=== PATIENT | female | born 1990 | race Caucasian/White ===

== ENCOUNTER → 2017-01-04 | Outpatient (CLI) | payer OTHER ==
[2017-01-04 19:49] LABS: Appearance,Urine Cloudy (Clear); Bacteria,Urine Few /hpf; Bilirubin,Urine Negative (Negative); Glucose,Urine (UA) Negative (Negative); Ketones,Urine Negative (Negative); Leukocyte Esterase,Urine Large (Negative); Mucus,Urine Rare /hpf; Nitrite,Urine Positive (Negative); Particle Count 15348; Protein,Urine Trace (Negative); RBC,Urine 3 /hpf (0-5); Squamous Epithelial Cell,Urine 6 /hpf (0-4); UA Billing (MACRO vs. MICRO) MICRO; Urobilinogen,Urine <2.0 mg/dL (<2.0); WBC,Urine 74 /hpf (0-5)
== END | disposition home or self-care (01) ==
LOC: LABMAIN 18:29
PROVIDERS: ATTEND Obstetrics & Gynecology
DX: R30.0 Dysuria (principal)
CPT/HCPCS: 81001; 87086

== ENCOUNTER 2017-10-10 16:22 | Emergency (ER) | payer OTHER ==
[2017-10-10 16:45] VITALS: RESP 18
[2017-10-10] MEDS ORDERED: SODIUM CHLORIDE 0.9% 1,000 ML IV ONE (17:16)
[2017-10-10] MEDS ORDERED: ACETAMINOPHEN TAB 325 MG TAB PO STA (17:17)
--- NOTE | 2017-10-10 17:21 | ED ---
Abdominal Pain HPI - General Chief Complaint: Abdominal Pain Stated Complaint: Back pain/ Time Seen by Provider: 10/10/17 17:07 Source: patient Mode of arrival: ambulatory Limitations: no limitations - History of Present Illness Initial Comments: 27 year-old female patient presents to the emergency department today for evaluation of right lower back pain that radiates into her abdomen. Patient states that she is approximately 6 weeks . She is A2, with 2 spontaneous miscarriages. States that yesterday she started to have hot flashes , frequency of urination, some mild dysuria. Today she had onset of the back pain that radiated around her right side into her abdomen. Patient states that she did have spotting a couple of days ago after intercourse, but that has resolved. She denies any current vaginal bleeding or discharge. She denies any hematuria. She denies any nausea or vomiting. Patient denies any recent rash, chills, shortness breath, chest pain, diarrhea, constipation, back pain, numbness, tingling, dizziness, weakness, headache, visual changes, or any other complaints. - Related Data Home Medications Medication Instructions Recorded Confirmed Kkh-Lpwv-Ouxcn Acid 1 tab PO DAILY 06/28/15 10/10/17 [-U Capsule (formulary)] Previous Rx's Medication Instructions Recorded Cephalexin [Keflex] 500 mg PO Q12H #14 cap 10/10/17 Allergies Allergy/AdvReac Type Severity Reaction Status Date / Time No Known Allergies Allergy Verified 10/10/17 16:57 Review of Systems ROS Statement: Those systems with pertinent positive or pertinent negative responses have been documented in the HPI. ROS Other: All systems not noted in ROS Statement are negative. Past Medical History Past Medical History: No Reported History History of Any Multi-Drug Resistant Organisms: None Reported Past Surgical History: No Surgical Hx Reported Past Anesthesia/Blood Transfusion Reactions: No Reported Reaction Past Psychological History: No Psychological Hx Reported Smoking Status: Never smoker Past Alcohol Use History: None Reported Past Drug Use History: None Reported - Past Family History Father Family Medical History: No Reported History General Exam Limitations: no limitations General appearance: alert, in no apparent distress, other (So well-developed, well-nourished adult female patient in no acute distress. Vital signs upon presentation are temperature 100.0F, pulse 86, respirations 18, blood pressure 127/72, pulse ox 98% on room air.) Eye exam: Present: normal appearance, PERRL, EOMI. Absent: scleral icterus, conjunctival injection, periorbital swelling ENT exam: Present: normal exam, normal oropharynx, mucous membranes moist Respiratory exam: Present: normal lung sounds bilaterally. Absent: respiratory distress, wheezes, rales, rhonchi, stridor Cardiovascular Exam: Present: regular rate, normal rhythm, normal heart sounds. Absent: systolic murmur, diastolic murmur, rubs, gallop, clicks GI/Abdominal exam: Present: soft, normal bowel sounds. Absent: distended, tenderness, guarding, rebound, rigid Back exam: Present: normal inspection. Absent: CVA tenderness (R), CVA tenderness (L) Neurological exam: Present: alert, oriented X3, CN II-XII intact Psychiatric exam: Present: normal affect, normal mood Skin exam: Present: warm, dry, intact, normal color. Absent: rash Course Vital Signs 10/10/17 16:44 Temperature 100.0 F H Pulse Rate 86 Respiratory 18 Rate Blood Pressure 127/72 O2 Sat by Pulse 98 Oximetry Medical Decision Making - Medical Decision Making 27 old female patient presented to the emergency department today for evaluation of right flank pain and urinary symptoms. Physical examination was unremarkable. Patient did not have any CVA tenderness. Labs reviewed and did reveal an elevated white blood cell count at 12.5, quantitative hCG was 16,405.4 , urinalysis showed cloudy appearance with 1+ protein, small amount of blood, positive nitrite, large leukocyte esterase, 90 red blood cells, 36 white blood cells, 5 squamous of edema cells, rare bacteria, and rare mucous. Ultrasound of the fetus did show a viable intrauterine measuring 5 weeks with a heart rate of 172. I did discuss findings and results with the patient. Did discuss possibility of a pyelonephritis given her flank pain. We will give HER- 2 grams of Rocephin IV push here in the department. She'll be started on Keflex and discharged home to follow-up with her [facility] as soon as possible. Return parameters discussed in detail. - Lab Data Result diagrams: 10/10/17 17:27 10/10/17 17:27 Lab Results 10/10/17 10/10/17 10/10/17 Range/Units 16:51 17:27 17:27 WBC 12.5 H (3.8-10.6) k/uL RBC 4.70 (3.80-5.40) m/uL Hgb 13.4 (11.4-16.0) gm/dL Hct 39.8 (34.0-46.0) % MCV 84.7 (80.0-100.0) fL MCH 28.6 (25.0-35.0) pg MCHC 33.7 (31.0-37.0) g/dL RDW 12.9 (11.5-15.5) % Plt Count 228 (150-450) k/uL Neutrophils % 83 % Lymphocytes % 12 % Monocytes % 3 % Eosinophils % 2 % Basophils % 0 % Neutrophils # 10.3 H (1.3-7.7) k/uL Lymphocytes # 1.4 (1.0-4.8) k/uL Monocytes # 0.4 (0-1.0) k/uL Eosinophils # 0.2 (0-0.7) k/uL Basophils # 0.0 (0-0.2) k/uL Sodium 138 (137-145) mmol/L Potassium 3.9 (3.5-5.1) mmol/L Chloride 103 (98-107) mmol/L Carbon Dioxide 21 L (22-30) mmol/L Anion Gap 14 mmol/L BUN 8 (7-17) mg/dL Creatinine 0.50 L (0.52-1.04) mg/dL Est GFR (CKD-EPI)AfAm >90 (>60 ml/min/1.73 sqM) Est GFR (CKD-EPI)NonAf >90 (>60 ml/min/1.73 sqM) Glucose 110 H (74-99) mg/dL Calcium 9.7 (8.4-10.2) mg/dL Total Bilirubin 0.4 (0.2-1.3) mg/dL AST 20 (14-36) U/L ALT 28 (9-52) U/L Alkaline Phosphatase 77 (38-126) U/L Total Protein 7.0 (6.3-8.2) g/dL Albumin 4.4 (3.5-5.0) g/dL Amylase 54 (30-110) U/L Lipase 50 (23-300) U/L HCG, Quant 27110.4 mIU/mL Urine Color Yellow Urine Appearance Cloudy H (Clear) Urine pH 6.5 (5.0-8.0) Ur Specific [place] 1.014 (1.001-1.035) Urine Protein 1+ H (Negative) Urine Glucose (UA) Negative (Negative) Urine Ketones Negative (Negative) Urine Blood Small H (Negative) Urine Nitrite Positive H (Negative) Urine Bilirubin Negative (Negative) Urine Urobilinogen <2.0 (<2.0) mg/dL Ur Leukocyte Esterase Large H (Negative) Urine RBC 19 H (0-5) /hpf Urine WBC 36 H (0-5) /hpf Ur Squamous Epith Cells 5 H (0-4) /hpf Urine Bacteria Rare H (None) /hpf Urine Mucus Rare H (None) /hpf Blood Type Blood Type Recheck 10/10/17 Range/Units 17:27 WBC (3.8-10.6) k/uL RBC (3.80-5.40) m/uL Hgb (11.4-16.0) gm/dL Hct (34.0-46.0) % MCV (80.0-100.0) fL MCH (25.0-35.0) pg MCHC (31.0-37.0) g/dL RDW (11.5-15.5) % Plt Count (150-450) k/uL Neutrophils % % Lymphocytes % % Monocytes % % Eosinophils % % Basophils % % Neutrophils # (1.3-7.7) k/uL Lymphocytes # (1.0-4.8) k/uL Monocytes # (0-1.0) k/uL Eosinophils # (0-0.7) k/uL Basophils # (0-0.2) k/uL Sodium (137-145) mmol/L Potassium (3.5-5.1) mmol/L Chloride (98-107) mmol/L Carbon Dioxide (22-30) mmol/L Anion Gap mmol/L BUN (7-17) mg/dL Creatinine (0.52-1.04) mg/dL Est GFR (CKD-EPI)AfAm (>60 ml/min/1.73 sqM) Est GFR (CKD-EPI)NonAf (>60 ml/min/1.73 sqM) Glucose (74-99) mg/dL Calcium (8.4-10.2) mg/dL Total Bilirubin (0.2-1.3) mg/dL AST (14-36) U/L ALT (9-52) U/L Alkaline Phosphatase (38-126) U/L Total Protein (6.3-8.2) g/dL Albumin (3.5-5.0) g/dL Amylase (30-110) U/L Lipase (23-300) U/L HCG, Quant mIU/mL Urine Color Urine Appearance (Clear) Urine pH (5.0-8.0) Ur Specific [place] (1.001-1.035) Urine Protein (Negative) Urine Glucose (UA) (Negative) Urine Ketones (Negative) Urine Blood (Negative) Urine Nitrite (Negative) Urine Bilirubin (Negative) Urine Urobilinogen (<2.0) mg/dL Ur Leukocyte Esterase (Negative) Urine RBC (0-5) /hpf Urine WBC (0-5) /hpf Ur Squamous Epith Cells (0-4) /hpf Urine Bacteria (None) /hpf Urine Mucus (None) /hpf Blood Type O Positive Blood Type Recheck No - Radiology Data Radiology results: report reviewed Transvaginal ultrasound of the fetus was obtained. Report shows viable intrauterine measuring 5 weeks 4 days with a heart rate of 172. Impression by Dr. Owens shows ultrasound gestational age is 5 weeks and 4 days. I see no complicating process. Disposition Clinical Impression: Pyelonephritis Disposition: HOME SELF-CARE Condition: Good Instructions: Urinary Tract Infection in (ED) Additional Instructions: Complete antibiotic in full. Increase fluids. Follow up with OBGYN as soon as possible. Have repeat urine done once antibiotics are complete to ensure clearance of infection. Return here immediately for any new, worsening, or concerning symptoms. Prescriptions: Cephalexin [Keflex] 500 mg PO Q12H #14 cap Is patient prescribed a controlled substance at d/c from ED?: No Referrals: Siddhartha Coates DO [Primary Care Provider] - 1-2 days Time of Disposition: 18:56
[2017-10-10 17:22] LABS: Appearance,Urine Cloudy (Clear); Bacteria,Urine Rare /hpf; Bilirubin,Urine Negative (Negative); Blood,Urine Small (Negative); Color,Urine Yellow; Glucose,Urine (UA) Negative (Negative); Ketones,Urine Negative (Negative); Leukocyte Esterase,Urine Large (Negative); Mucus,Urine Rare /hpf; Nitrite,Urine Positive (Negative); PH, Urine 6.5 (5.0-8.0); Protein,Urine 1+ (Negative); RBC,Urine 19 /hpf (0-5); Specific Gravity,Urine 1.014 (1.001-1.035); Squamous Epithelial Cell,Urine 5 /hpf (0-4); Urobilinogen,Urine <2.0 mg/dL (<2.0); WBC,Urine 36 /hpf (0-5)
[2017-10-10 17:35] LABS: Basophils % (A) 0 %; Eosinophils # (A) 0.2 k/uL (0-0.7); Eosinophils % (A) 2 %; HCT 39.8 % (34.0-46.0); HGB 13.4 gm/dL (11.4-16.0); Lymphocytes # (A) 1.4 k/uL (1.0-4.8); Lymphocytes % (A) 12 %; MCH 28.6 pg (25.0-35.0); MCHC 33.7 g/dL (31.0-37.0); MCV 84.7 fL (80.0-100.0); Mean Platelet Volume 8.6; Monocytes # (A) 0.4 k/uL (0-1.0); Monocytes % (A) 3 %; Neutrophils # (A) 10.3 k/uL (1.3-7.7); Neutrophils % (A) 83 %; Platelet Count 228 k/uL (150-450); RDW 12.9 % (11.5-15.5); WBC 12.5 k/uL (3.8-10.6)
[2017-10-10 17:58] LABS: ALT 28 U/L (9-52); AST 20 U/L (14-36); Albumin 4.4 g/dL (3.5-5.0); Alkaline Phosphatase 77 U/L (38-126); Amylase 54 U/L (30-110); Anion Gap 14 mmol/L; Blood Urea Nitrogen 8 mg/dL (7-17); Calcium 9.7 mg/dL (8.4-10.2); Carbon Dioxide 21 mmol/L (22-30); Chloride 103 mmol/L (98-107); Glucose 110 mg/dL (74-99); Lipase 50 U/L (23-300); Potassium 3.9 mmol/L (3.5-5.1); Sodium 138 mmol/L (137-145); Total Bilirubin 0.4 mg/dL (0.2-1.3)
[2017-10-10] MEDS ORDERED: cefTRIAXone IN SWFI 1,000 MG/10 ML SYRINGE IVP STA ×2 (18:22→18:44)
--- NOTE | 2017-10-10 18:28 | US ---
EXAMINATION TYPE: Transabdominal DATE OF EXAM: 09/18/17 COMPARISON: NONE CLINICAL HISTORY: Pain. RLQ pain EXAM PERFORMED: Transvaginal (TV) and Transabdominal (TA) EXAM MEASUREMENTS: GESTATIONAL AGE / DATING Physician Established: Not yet established Dates by LMP: (5 weeks/3 days) EDC: 06/09/2018 Dates by First Scan: No previous this is first scan Dates by Current Scan for: (5 weeks/4 days) EDC: 06/08/2018 MATERNAL ANATOMY Uterus: 9.8 x 4.7 x 6.0 cm Right Ovary: 2.3 x 1.5 x 2.0 cm Left Ovary: 2.3 x 2.1 x 3.6 cm Post CDS / Adnexa: wnl Presence of free fluid: no Presence of corpus luteal cyst: yes left ovary measuring 3.1 x 3.2 x 2.5 cm Presence of subchorionic bleed: no GESTATION / SURVEY CRL: 0.3 cm (5 weeks/6 days) MSD: 1.1 cm (5 weeks/2 days) Yolk Sac (normal less than 6mm): 2 mm Heart Rate: 172 bpm Rhythm: Normal IUP: Viable IUP Date of LMP: 09/02/2017 Beta HcG (if available): Not available at this time Viable IUP 5 wks 4days DAWN 06/08/2018 HR 172 BPM IMPRESSION: The ultrasound gestational age is 5 weeks and 4 days. I see no complicating process.
[2017-10-10 18:41] LABS: HCG,Quantitative Serum 16405.4 mIU/mL
[2017-10-10 19:02] VITALS: BP 125/63; PULSE 82; TEMP 98.4
== END 2017-10-10 19:13 | disposition home or self-care (01) ==
LOC: EC 16:22
DX: O23.01 Infections of kidney in pregnancy, first trimester (principal); Z3A.01 Less than 8 weeks gestation of pregnancy
CPT/HCPCS: 99284; 96374; 96361; 36415; 86900; 86901; 80053; 82150; 83690; 85025; 81001; 84702; 87086; 76801; 76817; J0696; 87077; 87186

== ENCOUNTER → 2018-01-03 | Outpatient (CLI) | payer OTHER ==
[2018-01-07 11:31] LABS: Alpha Fetoprotein (M.O.M) 1.08; B-HCG (M.O.M.) 0.45; Gestational Age (days) 4; Human Chorionic Gonadotropin 10.3 IU/mL; Inhibin A (M.O.M.) 0.49; Maternal Age at EDD (Yrs) 26; Smoker No; Unconjugated Estriol (M.O.M.) 1.23
== END | disposition home or self-care (01) ==
LOC: LABWHC1 16:31
PROVIDERS: ATTEND Obstetrics & Gynecology
DX: Z34.82 Encounter for supervision of other normal pregnancy, second trimester (principal); Z3A.00 Weeks of gestation of pregnancy not specified
CPT/HCPCS: 36415; 82105; 82677; 84702; 86336

== ENCOUNTER → 2018-03-09 | Outpatient (CLI) | payer OTHER ==
[2018-03-09 11:56] LABS: HCT 36.2 % (34.0-46.0); HGB 12.4 gm/dL (11.4-16.0); MCH 30.8 pg (25.0-35.0); MCHC 34.3 g/dL (31.0-37.0); MCV 89.8 fL (80.0-100.0); Mean Platelet Volume 8.5; Platelet Count 169 k/uL (150-450); RBC 4.03 m/uL (3.80-5.40); RDW 13.7 % (11.5-15.5); WBC 8.4 k/uL (3.8-10.6)
== END | disposition home or self-care (01) ==
LOC: LABWHC1 10:44
PROVIDERS: ATTEND Obstetrics & Gynecology
DX: Z34.82 Encounter for supervision of other normal pregnancy, second trimester (principal); Z3A.00 Weeks of gestation of pregnancy not specified
CPT/HCPCS: 36415; 82950; 85027

== ENCOUNTER 2018-05-28 18:56 | Outpatient (CLI) | payer OTHER ==
[2018-05-28 20:39] VITALS: BP 132/72; PULSE 88; RESP 16; TEMP 97.8
--- NOTE | 2018-05-30 17:53 | P.MSEPDOC ---
Presenting Problems - Arrival Data Date of Arrival on Unit: 05/28/18 Time of Arrival on Unit: 18:57 Mode of Transport: Wheelchair - Complaint OB-Reason for Admission/Chief Complaint: Possible Onset of Labor Comment: contx 5-6 mins apart starting at 0900, vaginal pressure, decreased FM Medical History - Information : 7 Para: 4 Term: 4 : 0 Abortions: Spontaneous or Elective: 2 Number of Living Children: 4 - Gestational Age Gestational Age by DAWN (wks/days): 38 Weeks and 2 Days - History Comment: none Review of Systems - Review of Systems Constitutional: No problems Breast: No problems ENT: No problems Cardiovascular: No problems Respiratory: No problems Gastrointestinal: No problems Genitourinary: No problems Musculoskeletal: No problems Neurological: No problems Skin: No problems Vital Signs - Temperature Temperature: 97.8 F Temperature Source: Temporal Artery Scan - Pulse Right Sitting Brachial Pulse Rate: 88 Pulse Assessment Method: Automatic Cuff - Respirations Respiratory Rate: 16 Oxygen Delivery Method: Room Air O2 Sat by Pulse Oximetry: 100 - Blood Pressure Right Arm Sitting Blood Pressure: 132/72 Blood Pressure Mean: 92 Blood Pressure Source: Automatic Cuff Medical Screen Scoring (Pre) - Cervical Exam Dilation: 1-3 cm = 1 Effacement: More than 50% = 2 Membranes: Intact - Uterine Contractions Frequency: > or = 36 weeks =2 Duration: > 40 seconds = 2 - Maternal Vital Signs Maternal Temperature: N/A Signs of Preeclampsia: N/A - Pain Assessment Pain Location and Character: Lower, Abdomen Pain Scale Used: Numeric (1 - 10) Pain Intensity: 6 Pain Management Goal: 3 Pain Description: *Acute, Cramping Pain Radiation Location: lower back Pain Frequency: Frequent Pain Duration: 10 Pain Duration Units: Hours Pain Behavior: Facial Grimacing, Vocalization Pain Aggravating Factors: Activity - Maternal Trauma Maternal Trauma: N/A - Assessment Baseline FHR: 135 Heart Rate - NICHD Category: Category I (Normal) = 0 Station: N/A - Total Score Total Score (Pre): 7 - Level of Risk Level of Risk: Medium (6-9) Physician Notification (Pre) - Physician Notified Physician Notified Date: 05/28/18 Physician Notified Time: 19:17 Physician/Practitioner Notifed:: valerio Spoke With: valerio New Order Received: Yes - Notification Comment Comment: recheck after 1 hour, if no cervical change, d/c home Medical Screen Scoring (Post) - Cervical Exam Dilation: 1-3 cm = 1 Effacement: More than 50% = 2 Membranes: Intact - Uterine Contractions Frequency: > or = 36 weeks =2 Duration: > 40 seconds = 2 - Maternal Vital Signs Maternal Temperature: N/A Maternal Blood Pressure: N/A Signs of Preeclampsia: N/A Maternal Respirations: N/A - Assessment Heart Rate: 130 Heart Rate - NICHD Category: Category I (Normal) = 0 NST: Reactive Position: N/A Station: N/A - Total Score Total Score (Post): 7 - Post Treatment Level of Risk Post Treatment Level of Risk: Medium (6-9) Physician Notification (Post) - Physician Notified Physician Notified Date: 05/28/18 Physician Notified Time: 19:17 Physician/Practitioner Notified:: valerio Spoke With: valerio New Order Received: Yes - Notification Comment Comment: d/c home, pt to f/u in office tomorrow at her scheduled appt. Disposition - Disposition OB Disposition: Discharge to home Discharge Date: 05/28/18 Discharge Time: 20:12 I agree with the RN Medical Screening Exam: Yes Risk & Benefit of care provided described in d/c instruction: Yes Diagnosis: FALSE LABOR AT OR AFTER 37 COMPLETED WEEKS OF GESTATION
== END 2018-05-28 20:12 | disposition home or self-care (01) ==
LOC: FBPOP 18:56
PROVIDERS: ATTEND Obstetrics & Gynecology
DX: O47.1 False labor at or after 37 completed weeks of gestation (principal); Z3A.38 38 weeks gestation of pregnancy
CPT/HCPCS: 59025; G0463; 99213

== ENCOUNTER → 2018-05-29 | Outpatient (CLI) | payer OTHER ==
--- NOTE | 2018-05-29 14:05 | US ---
EXAMINATION TYPE: US OB limited DATE OF EXAM: 05/29/2018 COMPARISON: NONE CLINICAL HISTORY: check fluid level . Assess kun for possible PROM EXAM PERFORMED: OB limited GESTATIONAL AGE / DATING Physician Established: (38 weeks/3 days) EDC: 06/09/2018 No growth performed on today?s study per ordering physician SURVEY KUN: 11.8 cm Normal Ultrasound evidence of premature rupture of membranes? NO PRESENTATION: Vertex HEART RATE: 166 bpm RHYTHM: Normal Impression page given to GRAYSON Packer small parts are not evaluated on this exam IMPRESSION: 1. No intrauterine gestation with cardiac activity 166 bpm. 2. KUN 11.8 cm.
--- NOTE | 2018-05-30 11:59 | P.MSEPDOC ---
Presenting Problems - Arrival Data Date of Arrival on Unit: 05/29/18 Time of Arrival on Unit: 13:10 Mode of Transport: Ambulatory - Complaint Comment: Dr. Ozuna sent pt over from office for NST and ultrasound for KUN level for decreased movement Medical History - Information : 7 Para: 4 Term: 4 : 0 Abortions: Spontaneous or Elective: 2 Number of Living Children: 4 Physician Notification (Pre) - Physician Notified Physician Notified Date: 05/29/18 Physician Notified Time: 14:10 Physician/Practitioner Notifed:: Dr. Ozuna Spoke With: Dr. Ozuna New Order Received: Yes - Notification Comment Comment: Dr. Ozuna notified of reactive NST, positive movement felt since arrival to triage, cervical exam same as in the office, KUN of 11.8, orders to discharge pt home, pt may come back on Sunday and Sunday for NST, pt is scheduled for IOL on SundayJun 05 Disposition - Disposition OB Disposition: Triage, Discharge to home, Written follow up instructions reviewed Discharge Date: 05/29/18 Discharge Time: 14:20 I agree with the RN Medical Screening Exam: Yes Risk & Benefit of care provided described in d/c instruction: Yes Diagnosis: DECREASED MOVEMENTS, THIRD TRIMESTER, UNSP
== END | disposition home or self-care (01) ==
LOC: FBPOP 13:10
PROVIDERS: ATTEND Obstetrics & Gynecology
DX: O36.8130 Decreased fetal movements, third trimester, not applicable or unspecified (principal); Z3A.00 Weeks of gestation of pregnancy not specified
CPT/HCPCS: 59025; 76815

== ENCOUNTER 2018-05-31 17:43 | Outpatient (CLI) | payer OTHER ==
[2018-05-31 18:18] VITALS: BP 121/71; PULSE 82; RESP 16; TEMP 98.8
--- NOTE | 2018-06-01 07:21 | P.MSEPDOC ---
Presenting Problems - Arrival Data Date of Arrival on Unit: 05/31/18 Time of Arrival on Unit: 17:53 Mode of Transport: Ambulatory - Complaint OB-Reason for Admission/Chief Complaint: NST Comment: pt here for a NST was here on SUNDAY for decreased movement and was told to come back Sunday and Sunday for a NST. Pt to be induced o Tuesday 06/[address] Ozuna Medical History - Information : 7 Para: 4 Term: 4 : 0 Abortions: Spontaneous or Elective: 2 Number of Living Children: 4 - Gestational Age Gestational Age by DAWN (wks/days): 38 Weeks and 2 Days Review of Systems - Review of Systems Constitutional: No problems Breast: No problems ENT: No problems Cardiovascular: No problems Respiratory: No problems Gastrointestinal: No problems Genitourinary: No problems Musculoskeletal: No problems Neurological: No problems Skin: No problems Vital Signs - Temperature Temperature: 98.8 F Temperature Source: Oral - Pulse Right Brachial Pulse Rate: 82 Pulse Assessment Method: Automatic Cuff - Respirations Respiratory Rate: 16 Oxygen Delivery Method: Room Air O2 Sat by Pulse Oximetry: 98 - Blood Pressure Right Arm Blood Pressure: 121/71 Blood Pressure Mean: 87 Blood Pressure Source: Automatic Cuff Medical Screen Scoring (Pre) - Cervical Exam Dilation: Exam Deferred Effacement: Exam Deferred Membranes: Intact - Uterine Contractions Frequency: > 5 minutes apart = 1 Duration: N/A Intensity: N/A - Maternal Vital Signs Maternal Temperature: N/A Maternal Blood Pressure: N/A Signs of Preeclampsia: N/A - Pain Assessment Pain Scale Used: Numeric (1 - 10) Pain Intensity: 0 Pain Management Goal: 0 Pain Behavior: Vocalization - Maternal Trauma Maternal Trauma: N/A - Assessment Baseline FHR: 130 Heart Rate - NICHD Category: Category I (Normal) = 0 NST: Reactive Position: N/A Station: N/A - Total Score Total Score (Pre): 1 Physician Notification (Post) - Physician Notified Physician Notified Date: 05/31/18 Physician Notified Time: 18:10 Spoke With: dr luo New Order Received: Yes - Notification Comment Comment: after reactive NST may discharge to home with instructions Disposition - Disposition OB Disposition: Discharge to home Discharge Date: 05/31/18 Discharge Time: 18:50 I agree with the RN Medical Screening Exam: Yes Risk & Benefit of care provided described in d/c instruction: Yes Diagnosis: DECREASED MOVEMENTS, THIRD TRIMESTER, FETUS 1 (Patient presents to labor and delivery for a scheduled nonstress test per Dr. Ozuna. Apparently the patient has had some decreased movement earlier this week and was instructed to come here on Sunday for repeat nonstress test. Nonstress test is reactive and patient is having good movement. She'll be discharged home to follow-up as directed by Dr. Ozuna.)
== END 2018-05-31 18:50 | disposition home or self-care (01) ==
LOC: FBPOP 17:43
PROVIDERS: ATTEND Obstetrics & Gynecology
DX: O36.8131 Decreased fetal movements, third trimester, fetus 1 (principal); Z3A.38 38 weeks gestation of pregnancy
CPT/HCPCS: 59025; G0463; 99213

== ENCOUNTER 2018-06-03 05:46 | Inpatient (IN) | payer OTHER ==
[2018-06-03] MEDS ORDERED: TERBUTALINE 1 MG/ML VIAL SQ PRN (05:58)
[2018-06-03] MEDS ORDERED: OXYTOCIN 10 UNIT/ML 1 ML VIAL IM PRN (05:58)
[2018-06-03] MEDS ORDERED: CARBOPROST TROMETHAMINE 250 MCG/ML 1 ML AMP IM PRN (05:58)
[2018-06-03] MEDS ORDERED: LIDOCAINE 0.5% (PF) 5 MG/ML (50 ML SDV) SQ PRN (05:58)
[2018-06-03] MEDS ORDERED: METHYLERGONOVINE 0.2 MG/ML 1 ML AMP IM PRN (05:58)
[2018-06-03] MEDS ORDERED: OXYTOCIN 20 UNITS/1000 ML NS 1,000 ML IV SCH ×2 (06:00→09:24)
[2018-06-03] MEDS ORDERED: LACTATED RINGERS 1,000 ML IV SCH (06:00)
[2018-06-03 06:07] VITALS: BMI 32.5
[2018-06-03 06:16] LABS: Basophils % (A) 0 %; Eosinophils # (A) 0.2 k/uL (0-0.7); Eosinophils % (A) 2 %; HCT 35.5 % (34.0-46.0); HGB 11.7 gm/dL (11.4-16.0); Lymphocytes # (A) 1.6 k/uL (1.0-4.8); Lymphocytes % (A) 23 %; MCHC 33.1 g/dL (31.0-37.0); MCV 90.6 fL (80.0-100.0); Mean Platelet Volume 9.5; Monocytes # (A) 0.5 k/uL (0-1.0); Monocytes % (A) 7 %; Neutrophils # (A) 4.3 k/uL (1.3-7.7); Neutrophils % (A) 65 %; Platelet Count 140 k/uL (150-450); RBC 3.92 m/uL (3.80-5.40); RDW 13.8 % (11.5-15.5); WBC 6.7 k/uL (3.8-10.6)
--- NOTE | 2018-06-03 08:52 | P.HPOB ---
History of Present Illness H&P Date: 06/03/18 Chief Complaint: Spontaneous rupture of membranes This is a 27 [place] female 7 para 4 with an estimated date of confinement of 06/09/2018, estimated gestational age of 39 and one sevenths weeks, who presents to labor and delivery with complaints of spontaneous rupture of membranes at approximately 5 AM this morning with clear fluid noted. She began feeling contractions shortly after rupture. Her care has been uncomplicated. labs: GC/chlamydia-negative Hepatitis B surface antigen-negative RPR-nonreactive Rubella-immune Blood type-O+ Antibody screen-negative Hemoglobin-13.8 Toxoplasma-negative Random glucose-81 Obstetrical ultrasound-normal anatomy Group B streptococcus-negative One hour Glucola-117 Obstetrical history: . History of 4 vaginal deliveries at term. History of 2 miscarriages. Gynecologic history: History of chlamydia treated in 2013. Social history: She is single. She is unemployed. Review of Systems Constitutional: Denies chills, Denies fever Eyes: denies blurred vision, denies pain Ears, nose, mouth and throat: Denies headache, Denies sore throat Cardiovascular: Denies chest pain, Denies shortness of breath Respiratory: Denies cough Gastrointestinal: Reports abdominal pain (Contractions) Genitourinary: Reports pelvic pain, Reports Musculoskeletal: Reports low back pain Integumentary: Denies pruritus, Denies rash Neurological: Denies numbness, Denies weakness Psychiatric: Reports anxiety, Denies depression Past Medical History Past Medical History: No Reported History History of Any Multi-Drug Resistant Organisms: None Reported Past Surgical History: No Surgical Hx Reported Past Anesthesia/Blood Transfusion Reactions: No Reported Reaction Past Psychological History: No Psychological Hx Reported Smoking Status: Never smoker Past Alcohol Use History: None Reported Past Drug Use History: None Reported - Past Family History Father Family Medical History: No Reported History Medications and Allergies Home Medications Medication Instructions Recorded Confirmed Type Wuq-Kmza-Qrjjj Acid 1 tab PO DAILY 06/28/15 06/03/18 History [-U Capsule (formulary)] Allergies Allergy/AdvReac Type Severity Reaction Status Date / Time No Known Allergies Allergy Verified 06/03/18 05:55 Exam Osteopathic Statement: *. No significant issues noted on an osteopathic structural exam other than those noted in the History and Physical/Consult. Vital Signs Temp Pulse Resp BP 06/03/18 06:15 98.2 F 86 18 127/61 06/03/18 06:01 98.2 F 86 18 127/61 Intake and Output 06/02/18 06/03/18 06/03/18 22:59 06:59 14:59 Other: # Voids 1 Weight 86.183 kg HEENT: Within normal limits Heart: Regular rate and rhythm Lungs: Clear to auscultation bilaterally Abdomen: Cervix: Initially on admission was 4 cm. Upon my check she was 6 cm/90%/-2 station with no palpable bag. heart tones: Reactive Contractions: Every 2-5 minutes Extremities: Negative Homans Results Result Diagrams: 06/03/18 06:10 Abnormal Lab Results - Last 24 Hours (Table) 06/03/18 Range/Units 06:10 Plt Count 140 L (150-450) k/uL Assessment and Plan (1) 39 weeks gestation of Current Visit: Yes Status: Acute Code(s): Z3A.39 - 39 WEEKS GESTATION OF SNOMED Code(s): 20600036 Plan: Admission for active labor. Expectant management.
--- NOTE | 2018-06-03 09:06 | P.PROBDLV ---
Vaginal Delivery Note - . Vaginal Delivery Note: The patient progressed to complete dilation. She did not receive any pain medication per her request. Once reaching complete, she began pushing. She pushed approximate 3 pushes and 's head came to a crown and then delivered across the perineum followed by the anterior shoulder. Nuchal cord times one was reduced around the body with delivery. And was placed on mother's abdomen. Nose and mouth were bulb suctioned. Cord was clamped and cut and was taken to warmer for evaluation. A true knot was also noted in the cord. Placenta delivered shortly thereafter, intact, with a three- vessel cord. Uterus contracted well after oxytocin was given and uterine massage was carried out. Inspection of the perineum revealed no perineal lacerations. A viable male infant was noted with scores of 7 at 1 minute and 9 at 5 minutes. weight is pending at this time. Estimated blood loss is approximately 150 mL's. Both mother and infant are in stable condition.
[2018-06-03] MEDS ORDERED: LANOLIN CREAM 5 GM TUBE TOPICAL PRN (09:24)
[2018-06-03] MEDS ORDERED: diphenhydrAMINE 25 MG CAP PO PRN (09:24)
[2018-06-03] MEDS ORDERED: BENZOCAINE/MENTHOL SPRAY 1 GM/SPRAY AEROSOL TOPICAL PRN (09:24)
[2018-06-03] MEDS ORDERED: HYDROCORTISONE 2.5% RECTAL CREAM 30 GM TUBE RECTAL PRN (09:24)
[2018-06-03] MEDS ORDERED: SIMETHICONE 80 MG CHEWABLE PO PRN (09:24)
[2018-06-03] MEDS ORDERED: WITCH HAZEL 1 EACH MED..PAD TOPICAL PRN (09:24)
[2018-06-03] MEDS ORDERED: ZOLPIDEM 5 MG TAB PO PRN (09:24)
[2018-06-03] MEDS ORDERED: diphenhydrAMINE 50 MG/ML 1 ML VIAL IVP PRN ×2 (09:24)
[2018-06-03] MEDS ORDERED: diphenhydrAMINE 50 MG CAP PO PRN (09:24)
[2018-06-03] MEDS: IBUPROFEN 600 MG TAB PO PRN ×2 (09:50→18:23)
[2018-06-03] MEDS: SENNOSIDES-DOCUSATE SODIUM 1 EACH TAB PO SCH (20:17)
--- NOTE | 2018-06-03 22:50 | P.PN ---
Progress Note - Text Progress Note Date: 06/03/18 Was requested by nursing to come and evaluate the patient due to passage of relatively large clot. Short time before my visit with the patient she passed a stool slightly larger than plum size clots, she presented to other larger clots in the last hour to also. At this time her uterus is firm and below the umbilicus she does still have some light bleeding but there is no heavy bleeding there is no signs or symptoms of hypovolemia. She is alert and oriented 3 voices no complaints is very comfortable in bed her starting he will was 11.7 and this she does not appear in any acute distress this time. We' ll continue to monitor the patient at this time with no intervention required.
[2018-06-03] MEDS: ACETAMINOPHEN TAB 325 MG TAB PO PRN (23:02)
[2018-06-04] MEDS: IBUPROFEN 600 MG TAB PO PRN (02:25)
[2018-06-04 07:01] LABS: Basophils % (A) 0 %; Eosinophils # (A) 0.2 k/uL (0-0.7); Eosinophils % (A) 2 %; HCT 33.5 % (34.0-46.0); HGB 11.3 gm/dL (11.4-16.0); Lymphocytes # (A) 1.9 k/uL (1.0-4.8); Lymphocytes % (A) 19 %; MCHC 33.8 g/dL (31.0-37.0); MCV 91.9 fL (80.0-100.0); Mean Platelet Volume 10.5; Monocytes # (A) 0.5 k/uL (0-1.0); Monocytes % (A) 5 %; Neutrophils # (A) 7.3 k/uL (1.3-7.7); Neutrophils % (A) 73 %; Platelet Count 120 k/uL (150-450); RBC 3.65 m/uL (3.80-5.40); RDW 13.8 % (11.5-15.5)
[2018-06-04 08:42] VITALS: BP 127/66; PULSE 72; RESP 18; TEMP 97.5
[2018-06-04] MEDS: SENNOSIDES-DOCUSATE SODIUM 1 EACH TAB PO SCH (08:42)
[2018-06-04] MEDS: ACETAMINOPHEN TAB 325 MG TAB PO PRN (08:46)
--- NOTE | 2018-06-04 09:10 | P.DS ---
Providers Date of admission: 06/03/18 05:48 Expected date of discharge: 06/04/18 Attending physician: Sindi Ozuna Primary care physician: Stated None - Discharge Diagnosis(es) (1) 39 weeks gestation of Current Visit: Yes Status: Acute Hospital Course: This is a 27-year-old female 7 para 4 at 39 and one sevenths weeks who presented with spontaneous rupture of membranes. She delivered vaginally a viable male infant on 06/03/2018 with scores of 7 at 1 minute and 9 at 5 minutes and infant weight of 8 lbs. 6 oz. Her course was complicated by some blood clots which passed last night. Her bleeding has slowed this morning. She denies any dizziness or lightheadedness. Lochia is minimal now. Vital signs are stable. Abdomen is soft with fundus firm and nontender. Extremities show negative Homans. Impression is status post vaginal delivery day #1. Plan is to discharge home today. Routine instructions are given. She is advised follow-up in the office in 6 weeks for a check. She is given a prescription for ibuprofen and a breast pump. Procedures: Spontaneous vaginal delivery of a viable male on 06/03/2018. Patient Condition at Discharge: Stable Plan - Discharge Summary New Discharge Prescriptions: New Ibuprofen [Motrin] 600 mg PO Q6HR PRN #60 tab PRN Reason: Mild Pain Or Fever >= 100.5 Continue Zko-[id number]-[id number] Acid [-U Capsule (formulary)] 1 tab PO DAILY Discharge Medication List Gvd-[id number]-Hswnm Acid [-U Capsule (formulary)] 1 tab PO DAILY 05/03 [History] Ibuprofen [Motrin] 600 mg PO Q6HR PRN #60 tab 06/04/18 [Rx] Follow up Appointment(s)/Referral(s): Sindi Ozuna DO [Doctor of Osteopathic Medicine] - 6 Weeks Activity/Diet/Wound Care/Special Instructions: Instructions 1. Do not begin any exercise program for 3 weeks. 2. Do not resume sexual relations for 3 weeks or longer if uncomfortable. 3. You may take tub baths or showers at any time. 4. You may use tampons if desired after 3 weeks. 5. Keep the area of episiotomy (stitches) clean and dry. 6. If you are not nursing, wear a good fitting, supportive bra during the day and limit fluid intake for at least 1 week to prevent breast engorgement. 7. Call the office, [phone], within the next week to make appointment for your 6 week checkup if it has not already been made. 8. Report any of the following occurrences to the doctor promptly: a. Heavy, excessive bleeding b. Chills, fever c. Burning or frequency of urination d. Pain or redness and breasts if nursing e. Increasing pain or swelling in episiotomy (stitches). In addition to the above instructions, the following additional should be followed: 1. No heavy lifting or straining (exercising) until after 6 week checkup. 2. Keep abdominal incision clean and dry: You may wear a dressing if more comfortable. 3. Make office appointment for 10 days after going home or as instructed by her doctor. Discharge Disposition: HOME SELF-CARE
[2018-06-04] MEDS ORDERED: INFLUENZA VACCINE (6 MOS+) 60 MCG/0.5 ML SYRINGE IM ONE (10:22)
== END 2018-06-04 11:36 | disposition home or self-care (01) | DRG 807 ==
LOC: FBPOP 05:46 → 4FBP 05:48
PROVIDERS: ADMIT Obstetrics & Gynecology; ATTEND Obstetrics & Gynecology
PROC: 10E0XZZ Delivery of Products of Conception, External Approach (ICD-10-PCS; principal; 2018-06-03)
DX: O69.81X0 Labor and delivery complicated by cord around neck, without compression, not applicable or unspecified (principal); O69.2XX0 Labor and delivery complicated by other cord entanglement, with compression, not applicable or unspecified; Z37.0 Single live birth; Z3A.39 39 weeks gestation of pregnancy
CPT/HCPCS: 85025; 86850; 86900; 86901; 90686

== ENCOUNTER → 2023-01-26 | Outpatient (CLI) | payer OTHER ==
[2023-01-26 20:11] LABS: Basophils # (A) 0.03 X 10*3/uL (0.00-0.10); Basophils % (A) 0.5 %; Eosinophils # (A) 0.06 X 10*3/uL (0.04-0.35); Eosinophils % (A) 0.9 %; HCT 43.5 % (37.2-46.3); HGB 14.4 d/dL (12.0-15.0); Lymphocytes # (A) 2.19 X 10*3/uL (0.90-5.00); Lymphocytes % (A) 33.1 %; MCH 29.8 pg (27.0-32.0); MCHC 33.1 d/dL (32.0-37.0); MCV 89.9 FL (80.0-97.0); Mean Platelet Volume 11.7 FL (9.5-12.2); Monocytes # (A) 0.46 X 10*3/uL (0.20-1.00); Monocytes % (A) 6.9 %; NRBC Per 100 WBC 0 X 10*3/uL (0.00-0.01); Neutrophils # (A) 3.85 X 10*3/uL (1.80-7.70); Neutrophils % (A) 58.1 %; Platelet Count 249 X 10*3/uL (140-440); RBC 4.84 X 10*6/uL (4.10-5.20); WBC 6.62 X 10*3/uL (4.50-10.00)
== END | disposition home or self-care (01) ==
LOC: LABPAT 12:08
PROVIDERS: ATTEND Obstetrics & Gynecology
DX: Z01.812 Encounter for preprocedural laboratory examination (principal)
CPT/HCPCS: 85025

== ENCOUNTER 2023-02-02 05:48 | Day surgery (SDC) | payer OTHER ==
[2023-01-26 10:28] VITALS: BMI 28.3
--- NOTE | 2023-02-01 19:41 | P.HPOB ---
History of Present Illness H&P Date: 02/01/23 Chief Complaint: Family planning This is a 32 y.o. female, 7, para 5, who presents for laparoscopic bilateral tubal ligation via fulgaration with IUD removal for family planning. She's having dyspareunia and wishes to have her IUD removed. She wants permanent sterilization. She is also having a hernia repair done with Dr. Soto immediately following my case. OB Hx: . History of 5 vaginal deliveries and 2 miscarriages. 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 Social Hx: Single. Unemployed. Review of Systems Constitutional: Denies chills, Denies fever Eyes: denies blurred vision, denies pain Ears, nose, mouth and throat: Denies headache, Denies sore throat Cardiovascular: Denies chest pain, Denies shortness of breath Respiratory: Denies cough Gastrointestinal: Reports abdominal pain (around umbilicus), Denies diarrhea, Denies nausea, Denies vomiting Genitourinary: Reports dysmenorrhea, Reports dyspareunia, Reports urinary frequency, Denies dysuria, Denies hematuria Menstruation: Reports menses variable, Reports period heavy Musculoskeletal: Denies myalgias Integumentary: Denies pruritus, Denies rash Neurological: Denies numbness, Denies weakness Psychiatric: Reports anxiety, Reports insomnia Endocrine: Denies fatigue, Denies weight change Past Medical History Past Medical History: No Reported History Additional Past Medical History / Comment(s): Varicose veins. History of Any Multi-Drug Resistant Organisms: None Reported Past Surgical History: No Surgical Hx Reported Past Anesthesia/Blood Transfusion Reactions: No Reported Reaction Additional Past Anesthesia/Blood Transfusion Reaction / Comment(s): Patient has never had general anesthesia. Past Psychological History: Anxiety Smoking Status: Never smoker Past Alcohol Use History: None Reported Past Drug Use History: None Reported - Past Family History Father Family Medical History: No Reported History Medications and Allergies Home Medications Medication Instructions Recorded Confirmed Type No Known Home Medications 01/26/23 02/02/23 History Allergies Allergy/AdvReac Type Severity Reaction Status Date / Time No Known Allergies Allergy Verified 02/02/23 06:26 Exam Osteopathic Statement: *. No significant issues noted on an osteopathic structural exam other than those noted in the History and Physical/Consult. Gen: well-developed, well-nourished female in no acute distress HEENT: within normal limits Heart: regular rate and rhythm Lungs: clear to auscultation bilaterally Abdomen: soft, mild tenderness around umbilical hernia Pelvic: uterus anteverted, non-tender, no adnexal masses or tenderness Extremities: neg. Christine's Assessment and Plan (1) Family planning Current Visit: No Status: Acute Code(s): Z30.09 - ENCOUNTER FOR OT GENERAL CNSL AND ADVICE ON CONTRACEPTION SNOMED Code(s): 563676482 Plan: Proceed with laparoscopic bilateral tubal ligation via fulgaration and removal of intrauterine device. Dr. Soto to perform umbilical hernia repair. I have discussed the risks, benefits, and alternative therapies for the above- mentioned procedure and for both sedation/anesthesia as well as necessary blood products administration, if indicated, as they pertain to this patient. The patient has indicated her understanding and acceptance of the risks and procedures discussed.
[2023-02-02] MEDS ORDERED: LIDOCAINE 1% (10MG/ML) FOR IV START INTRADERMA PRN (06:05)
[2023-02-02] MEDS ORDERED: SCOPOLAMINE 1 MG/72 HR PATCH TRANSDERM ONE (06:05)
[2023-02-02] MEDS ORDERED: LACTATED RINGERS 1,000 ML IV SCH (06:05)
[2023-02-02] MEDS ORDERED: droPERidol 5 MG/2 ML VIAL IVP ONE (06:05)
[2023-02-02] MEDS ORDERED: ONDANSETRON 4 MG/2 ML VIAL IVP ONE (06:05)
[2023-02-02] MEDS ORDERED: DEXAMETHASONE SOD PHOSPHATE 4 MG/ML 1 ML VIAL IV ONE (06:05)
[2023-02-02] MEDS ORDERED: HYDROmorphone 0.5 MG/0.5 ML SYRINGE IVP PRN (07:00)
[2023-02-02] MEDS ORDERED: NEOSTIGMINE 1 MG/ML 10 ML VIAL ONE (07:32)
[2023-02-02] MEDS ORDERED: LIDOCAINE 2% INJ 20 MG/ML (2 ML VIAL) ONE (07:32)
[2023-02-02] MEDS ORDERED: SUCCINYLCHOLINE CHLORIDE 200 MG/10 ML VIAL IV ONE (07:32)
[2023-02-02] MEDS ORDERED: SUGAMMADEX SODIUM 200 MG/2 ML SDV IV ONE (07:32)
[2023-02-02] MEDS ORDERED: ROCURONIUM 10 MG/ML (5 ML VIAL) IV ONE (07:32)
[2023-02-02] MEDS ORDERED: KETOROLAC 15 MG/ML 1 ML VIAL ONE (07:32)
[2023-02-02] MEDS ORDERED: PROPOFOL 10 MG/ML 20 ML VIAL IV ONE (07:32)
[2023-02-02] MEDS ORDERED: GLYCOPYRROLATE 0.2 MG/ML 2 ML VIAL ONE (07:32)
[2023-02-02] MEDS ORDERED: fentaNYL (PF) 50 MCG/ML 2 ML AMP ONE (07:32)
[2023-02-02] MEDS ORDERED: MIDAZOLAM 2 MG/2 ML VIAL ONE (07:32)
[2023-02-02] MEDS ORDERED: LIDOCAINE 0.5%-EPI 1:200,000 50 ML VIAL SQ ONE (08:12)
--- NOTE | 2023-02-02 08:17 | P.OP ---
Date of Procedure: 02/02/23 Preoperative Diagnosis: Family planning Postoperative Diagnosis: Same Procedure(s) Performed: Removal of intrauterine device Laparoscopic bilateral tubal ligation via fulguration Anesthesia: ANDI Surgeon: Sindi Ozuna Estimated Blood Loss (ml): 5 Pathology: none sent Condition: stable Disposition: same day Indications for Procedure: This is a 32 y.o. female, 7, para 5, who presents for laparoscopic bilateral tubal ligation via fulgaration with IUD removal for family planning. She's having dyspareunia and wishes to have her IUD removed. She wants permanent sterilization. She is also having a hernia repair done with Dr. Soto immediately following my case. Operative Findings: Uterus is sounded to 9-1/2 cm. Both tubes appeared normal. There is a small follicle cyst noted on the left ovary. Otherwise all pelvic anatomy appears normal. Description of Procedure: The patient is taken to the operating room where she is placed in the dorsal lithotomy position. She is prepped and draped in the normal sterile fashion. Examination is performed under anesthesia. Uterus is found to be in a anteverted position. No adnexal masses were palpated. Next a bivalve speculum was placed in the patient's vagina. An Allis clamp was used to grasp the anterior lip of the cervix. The ParaGard IUD strings are visualized, grasped with a ring forcep and then the IUD is completely removed and discarded. The uterus was sounded to 9.5 cm. The kroner uterine manipulator was then inserted through the cervix and the balloon was inflated. The Allis clamp is removed speculum was removed gloves were changed and attention was turned to the abdomen. Dr. Soto had already made an incision in the infraumbilical fold and inserted the 5 mm disposable trocar under direct visualization. Once inside, pneumoperitoneum was achieved with CO2 gas. The insert was removed and the camera was placed. Intraperitoneal placement was confirmed. No bleeding was noted. Next the patient was placed in Trendelenburg position. A small stab incision was made suprapubically and a 5 mm disposable bladeless trocar was inserted into the peritoneal cavity under direct visualization. Once inside pelvic contents were inspected. Next a bipolar Kleppinger instrument was placed through the inferior trocar and the midportion of each tube was brought away from other structures and completely fulgurated on approximate 2-3 cm segment of each tube. Excellent hemostasis was noted. Pictures were taken. Pneumoperitoneum was released after the inferior trocar was removed under direct visualization. The upper trocar was then removed. Dr. Soto then finished closing the incisions and completing the umbilical hernia repair. This will be dictated separately. Next the kroner uterine manipulator was removed. Minimal bleeding was noted. All sponge and needle counts are correct. The patient is then taken to recovery room in stable condition.
--- NOTE | 2023-02-02 08:27 | P.OP ---
Date of Procedure: 02/02/23 Preoperative Diagnosis: Umbilical hernia Postoperative Diagnosis: Umbilical hernia Procedure(s) Performed: Umbilical herniorrhaphy Anesthesia: ANDI Surgeon: Mikki Soto Estimated Blood Loss (ml): 5 Pathology: none sent Condition: stable Disposition: PACU Indications for Procedure: Patient presented with a symptomatic umbilical hernia. She was having a tubal ligation performed and requested this to be repaired at the same time Description of Procedure: Patient's taken the operative suite where she is prepped and draped in usual sterile manner. A small incision was made under the umbilicus. The umbilicus still was dissected free from the subcutaneous tissues and surrounding fascia. There is a very small fat filled hernia defect. This was entered using a [address] grewal performed her tubal ligation. The pneumoperitoneum was released. The trocar was removed. The fascia had a very small defect, 5 mm so was repaired primarily using 0 Ethibond suture. The umbilicus was then tacked down to the fascia using 4-0 Vicryl. The skin incisions were closed with 4-0 Vicryl in a subcuticular manner. Steri-Strips and dressings were applied. She tolerated the procedure without difficulty and was taken recovery room in satisfactory condition. According to or personnel, ARE correct.
[2023-02-02 08:38] VITALS: TEMP 97.8
[2023-02-02] MEDS ORDERED: Acetaminophen-Codeine 300-30mg TAB ONE (09:17)
[2023-02-02] MEDS ORDERED: ONDANSETRON 4 MG/2 ML VIAL ONE (09:17)
[2023-02-02 09:50] VITALS: RESP 16
[2023-02-02 10:08] VITALS: BP 107/69; PULSE 62
== END 2023-02-02 10:29 | disposition home or self-care (01) ==
LOC: OR 05:48
PROVIDERS: ATTEND Obstetrics & Gynecology
DX: K42.9 Umbilical hernia without obstruction or gangrene (principal); F41.9 Anxiety disorder, unspecified; Z30.2 Encounter for sterilization; Z98.890 Other specified postprocedural states
CPT/HCPCS: 81025; 58670; 58301; 49593; J2250; J0330; J1100; J2710; J0690; J2405; J3010; J1885; J2704; J2001